=== PATIENT | male | born 1965 | race Caucasian/White ===

== ENCOUNTER 2017-10-29 07:23 | Emergency (ER) | payer BC ==
[2017-10-29 07:52] VITALS: BP 133/89
[2017-10-29] MEDS ORDERED: Ketorolac INJ* 60 MG/2 ML VIAL IM ONE (08:47)
--- NOTE | 2017-10-29 10:38 | UC ---
Alvarez Prince Gabriel, scribed for Susan Snowden DO on 10/29/17 at 0839 . Truncal Trauma HPI - HPI Summary HPI Summary: This patient is a 52 year old M [place] [facility] [place] chief complaint of rib pain that is worse the last two days. The patient rates the pain 3/10 in severity. Symptoms aggravated by coughing and sneezing. Patient reports mild cough. Patient denies fever, chills, diaphoresis, ABD pain, CP, SOB, dizziness, labored breathing, trauma, neck pain, and jaw pain. Pt has bronchitis 2 weeks ago that was accompanied by frequent coughing and this initiated the rib pain but it has gotten worse the last two days. No hx of osteoporosis. - History Of Current Complaint Chief Complaint: UCRespiratory Stated Complaint: PAIN IN RIB AREA Time Seen by Provider: 10/29/17 08:21 Hx Obtained From: Patient Onset/Duration: Still Present, Worse Since - two days ago Severity Initially: Mild Severity Currently: Mild Pain Intensity: 3 Pain Scale Used: 0-10 Numeric Aggravating Factor(s): Cough, Other - sneezing Associated Signs And Symptoms: Positive: Negative - fever, chills, diaphoresis, ABD pain, CP, SOB, dizziness, labored breathing, trauma, neck pain, and jaw pain , Cough - Allergies/Home Medications Allergies/Adverse Reactions: Allergies Allergy/AdvReac Type Severity Reaction Status Date / Time aspirin Allergy Airway Verified 10/29/17 07:42 Obstruction penicillin V Allergy Airway Verified 10/29/17 07:42 Obstruction PMH/Surg Hx/FS Hx/Imm Hx Other History Of: Negative For: Hepatitis B, Hepatitis C - Surgical History Surgical History: Yes Surgery Procedure, Year, and Place: 2010 - RIGHT ACL repair - Family History Known Family History: Positive: Unknown - pt is adopted - Social History Occupation: Employed Full-time Alcohol Use: Daily Substance Use Type: None Smoking Status (MU): Former Smoker Type: Cigarettes Amount Used/How Often: 12-15 cigs daily Review of Systems Constitutional: Negative - fever Respiratory: Cough Musculoskeletal: Other: - rib pain All Other Systems Reviewed And Are Negative: Yes Physical Exam - Summary Physical Exam Summary: Appearance: Well-Appearing, No Pain Distress, Well-Nourished Eyes: conjunctiva clear, no discharge ENT: Hearing grossly normal, no muffled/hoarse voice. TMs normal, negative tonsillar swelling, negative tonsillar exudate, negative trismus. Neck: Normal, Supple Respiratory/Lung Sounds: Lungs clear, Normal breath sounds, No respiratory distress, No accessory muscle use Cardiovascular: RRR, No murmur Abdomen (if she checks): Nontender, Soft, no guarding, not distended Bowel Sounds (if she checks): Present Musculoskeletal: chest wall tenderness over the costosternal junction of ribs 3, 4,5 Neurological: Alert, muscle tone normal Psychiatric: Normal, age appropriate behavior Skin: Normal, Warm, Dry, Normal color Triage Information Reviewed: Yes Vital Signs: Initial Vital Signs Temp 97.9 F 10/29/17 07:43 Pulse 100 10/29/17 07:43 Resp 18 10/29/17 07:43 BP 133/89 10/29/17 07:43 Pulse Ox 96 10/29/17 07:43 Vital Signs Reviewed: Yes Truncal Trauma Course/Dx - Course Course Of Treatment: In the [facility] course the patient was given toradol. Patient will be discharged with prescription for ultram, naproxen, and mucinex and follow up from PCP. The patient is agreeable with this plan. Medications reviewed. Allergies reviewed. High blood pressure noted. - Differential Dx/Diagnosis Provider Diagnoses: Costochondritis and rib injury Discharge - Discharge Plan Condition: Stable Disposition: HOME Prescriptions: guaiFENesin ER TAB [Mucinex*] 600 mg PO BID PRN #1 box PRN Reason: Cough Naproxen [Naproxen EC 500 MG TAB] 500 mg PO BID #14 tab traMADol TAB* [Ultram*] 50 mg PO Q8H PRN #14 tab MDD 3 TABS PRN Reason: Pain Patient Education Materials: Costochondritis (ED), Rib Contusion (ED) Forms: *Work Release Referrals: Kaveh Singh MD [Primary Care Provider] - (Follow up in 3-5 days.) Additional Instructions: ANTI-INFLAMMATORY MEDICATION: You have received a prescription for an antiinflammatory agent. This is an excellent, safe drug for pain control. In addition, it has potent antiinflammatory effects which are beneficial, especially in the treatment of injuries, arthritis, or tendonitis. It's best to take this medicine with food. Persons with ulcer disease or allergy to aspirin should notify their physician of this before taking this drug. Take the medication exactly as prescribed. Don't take additional doses unless instructed to do so by your doctor. If you develop wheezing, shortness of breath, hives, faintness, stomach pain, vomiting, or dark black stools, return for re-evaluation at once. ULTRAM (tramadol hydrochloride): Ultram is an excellent drug for pain relief. It is not a narcotic, but it works in a similar way. Ultram can take up to two hours for full effect. Although not addicting, Ultram is best avoided in patients with a history of drug abuse. Ultram should not be used with alcohol, sleeping pills, or narcotics. If you're prone to seizures, Ultram can make you more likely to have a seizure. Ultram can be hazardous when combined with MAO-inhibitor antidepressants (such as Nardil or Parnate). Be sure your doctor is aware of all medicines you are taking. Persons with severe liver or kidney disease should increase the time between doses of Ultram. Discuss this with your doctor if you're uncertain. Side effects of Ultram can include dizziness, nausea, constipation, sleepiness, and itching. (These side effects are also seen with narcotic pain medicines.) Please call your doctor if you have other disturbing effects. EXPECTORANT MEDICATION: An expectorant medicine has been prescribed. This type of drug makes mucous thinner, helping the sinuses, nose, and bronchial tubes to remain free of pus and mucous. Expectorants make a cough less severe and more comfortable, and help infected sinuses drain. In general, antihistamines defeat the purpose of the expectorant by making mucous thicker. They should be avoided unless specifically recommended by your physician. The documentation as recorded by the Alvarez santoyo Gabriel accurately reflects the service I personally performed and the decisions made by , Susan Snowden DO.
== END 2017-10-29 09:39 | disposition home or self-care (01) ==
LOC: UCEAST 07:23
DX: M94.0 Chondrocostal junction syndrome [Tietze] (principal); S29.9XXA Unspecified injury of thorax, initial encounter; X50.9XXA Other and unspecified overexertion or strenuous movements or postures, initial encounter; Y93.9 Activity, unspecified; Y92.9 Unspecified place or not applicable; R05 Cough; Z88.6 Allergy status to analgesic agent; Z88.0 Allergy status to penicillin; Z87.891 Personal history of nicotine dependence
CPT/HCPCS: 96372; 99212; G0463; J1885